=== PATIENT | male | born 1990 | race African-American/Black ===

== ENCOUNTER 2017-08-28 04:07 | Emergency (ER) | payer SELFPAY ==
[~2017-08-28] VITALS: Ht 167.6 cm; Wt 77.1 kg
[2017-08-28 04:27] VITALS: BP 123/78
--- NOTE | 2017-08-28 04:31 | Emergency Room Report ---
History of Present Illness General Chief Complaint: Medical Clearance Source: Patient Present Illness HPI Is a 27-year-old male with no past medical history. He presents with medical clearance for booking. He was in a nearby restaurant refuse to leave. They called 911. Patient was arrested. He denies any complaint other than his handcuffs are too tight. Denies any pain. Allergies: Coded Allergies: No Known Allergies (Unverified , 07/25/12) Patient History Past Medical History: none, see triage record Past Surgical History: none Pertinent Family History: none Social History: Denies: smoking Immunizations: other Reviewed Nursing Documentation: PMH: Agreed, PSxH: Agreed Nursing Documentation-PMH Past Medical History: No Stated History Review of Systems Eye: Denies: eye pain, blurred vision ENT: Denies: ear pain, nose congestion, throat swelling Respiratory: Denies: cough, shortness of breath Cardiovascular: Denies: chest pain, palpitations Gastrointestinal: Denies: abdominal pain, diarrhea, nausea, vomiting Musculoskeletal: Denies: back pain, joint pain Skin: Denies: rash Neurological: Denies: headache, numbness Endocrine: Denies: increased thirst, increased urine Hematologic/Lymphatic: Denies: easy bruising All Other Systems: negative except mentioned in HPI Physical Exam Vital Signs Date Time Temp Pulse Resp B/P (MAP) Pulse Ox O2 Delivery O2 Flow Rate FiO2 08/28/17 04:08 98.8 140 22 123/78 97 Room Air vitals with tachycardia Sp02 EP Interpretation: reviewed, normal General Appearance: well appearing, no apparent distress, alert Head: normocephalic, atraumatic Eyes: bilateral eye PERRL, bilateral eye EOMI ENT: hearing grossly normal, normal pharynx Neck: full range of motion, supple, no meningismus Respiratory: chest non-tender, lungs clear, normal breath sounds Cardiovascular #1: regular rate, rhythm, no murmur, tachycardia - Heart rate 120 Gastrointestinal: normal bowel sounds, non tender, no mass, no organomegaly, no bruit, non-distended Musculoskeletal: back normal, gait/station normal, normal range of motion Neurologic: normal inspection, oriented x3 Psychiatric: other - Agitated Skin: warm/dry Medical Decision Making Diagnostic Impression: Primary Impression: Agitation Additional Impression: Medical clearance for incarceration ER Course Patient here for medical clearance. He is agitated. Possibly intoxicated with alcohol and/or drugs. He is otherwise healthy. No trauma. He was yelling that he is having a seizure even though he is coherent and talking. Last Vital Signs Date Time Temp Pulse Resp B/P (MAP) Pulse Ox O2 Delivery O2 Flow Rate FiO2 08/28/17 04:08 98.8 140 22 123/78 97 Room Air Status: unchanged Disposition: D/C TO LAW ENFORCEMENT IN [facility] Condition: Stable Scripts No Active Prescriptions or Reported Meds Additional Instructions: Abstain from drugs and alcohol. Followup with in 7 days. Return if worse. KAROLYN PRESSLEY M.D. Aug 28, 2017 04:31
== END 2017-08-28 04:39 ==
LOC: EMR 04:32
DX: R45.1 Restlessness and agitation (principal); Z02.89 Encounter for other administrative examinations
CPT/HCPCS: 99283